=== PATIENT | female | born 1950 | race Caucasian/White ===

== ENCOUNTER → 2016-08-27 | Outpatient (CLI) | payer BC ==
[~2016-08-27] MED LIST: CLARITIN 1010 MG/TAB PO
== END ==
LOC: MC.RAD 14:40
DX: Z12.31 Encounter for screening mammogram for malignant neoplasm of breast (principal)

== ENCOUNTER → 2018-01-28 | Outpatient (CLI) | payer MEDICARE, OTHER | LOC: MC.RAD 12-18 08:40 | DX: Z12.31 Encounter for screening mammogram for malignant neoplasm of breast (principal) ==

== ENCOUNTER 2019-09-02 09:57 | Day surgery (SDC) | payer MEDICARE, OTHER ==
[~2019-09-02] VITALS: Ht 171.4 cm; Wt 63.6 kg
[2019-09-02] VITALS (11 sets, daily range): BP systolic 97–124; BP diastolic 49–85; PULSE 56–81; TEMP 97.3–98
[~2019-09-02 09:57] MED LIST changes: +MELATONIN5 M1 SL; +NORCO 325 MG-51 TAB PO; +TYLENOL 8 HR PO
--- NOTE | 2019-09-02 10:54 | NUR ---
Patient returns to room per cart from PACU by Rafal CLARK and oxyen saturation 99-100 on room air. States that she was feeling slightly woozy. Allowed to rest. Spouse in room. Will continue to monitor.
--- NOTE | 2019-09-02 17:05 | NUR ---
Patient arrived to floor from PACU via bed. Patient is drowsy but awake, oriented, and answers questions appropriately. Jordan drain has scant amount of drainage. Dressing to right mastectomy site is CDI, no indication of swelling or hematoma. Post op checks initiated. Patient denies needs at this time, call light within reach.
--- NOTE | 2019-09-02 18:27 | NUR ---
Patient resting in bed eating dinner at this time. Patient states that she is beginning to feel a bit nauseous, administered PRN zofran per order. Post op checks continue, VS WNL. Dressing to right matectomy site continues to be CDI with no indications of swelling or hematoma. Patient states pain is well controlled at this time, and denies further needs, call light within reach.
--- NOTE | 2019-09-02 20:00 | NUR ---
Report received. Assumed care for security shift supervisor. A&Ox3. Assessment complete. VS stable. Dressing to left chest-gauze/medipore tape is C/D/I. REYMUNDO drain with serosanguineous fluid. Right chest port bandaids C/D/I. Denies nausea/pain/shortness of breath. Plan of care discussed for this shift-denies questions/concerns. Call light in reach. Will monitor.
[2019-09-03 04:00] VITALS: BP 111/67; PULSE 71; TEMP 98.1
--- NOTE | 2019-09-03 06:43 | NUR ---
Rested well this shift. Pain controlled with tylenol. Voiding. Tolerating PO. Dressing have remained C/D/I. REYMUNDO drain with 75mls of output this shift.
[2019-09-03 08:00] VITALS: BP 124/74; PULSE 97; TEMP 98.2
--- NOTE | 2019-09-03 08:34 | NUR ---
Dr Taylor here to see patient.
--- NOTE | 2019-09-03 08:45 | NUR ---
Patient alert and oriented, answers questions appropriately. See assessment. Right breast incision with dressing CDI, no drainage noted. REYMUNDO to right breast compressed, dressing CDI. No c/o at this time.
--- NOTE | 2019-09-03 10:25 | NUR ---
Dressing to right breast changed, incision with edges well approximated, no redness or drainage noted. REYMUNDO dressing changed, drain to compression. REYMUNDO drain care education provided, return demonstration. Discharge instructions reviewed with patient and spouse, verbalized understanding. Discharged via wheelchair to auto/home with family at 1020.
== END 2019-09-03 10:20 | disposition home or self-care (01) ==
LOC: SDCO 09:57 → SURG 15:05 → SDCO 09-03 10:20
DX: C50.511 Malignant neoplasm of lower-outer quadrant of right female breast (principal); Z17.1 Estrogen receptor negative status [ER-]; C77.3 Secondary and unspecified malignant neoplasm of axilla and upper limb lymph nodes; K21.9 Gastro-esophageal reflux disease without esophagitis; M19.041 Primary osteoarthritis, right hand; M19.042 Primary osteoarthritis, left hand; Z80.0 Family history of malignant neoplasm of digestive organs; Z80.1 Family history of malignant neoplasm of trachea, bronchus and lung; Z82.3 Family history of stroke; Z88.5 Allergy status to narcotic agent
CPT/HCPCS: OP; C1788; J0690; J1100; J1170; J1644; J2250; J2405; J2704; J2795; J3010; J7120

== ENCOUNTER → 2019-09-17 | Outpatient (CLI) | payer MEDICARE, OTHER | LOC: COL.VAS 09:57 | DX: Z51.11 Encounter for antineoplastic chemotherapy (principal); C50.511 Malignant neoplasm of lower-outer quadrant of right female breast; I51.7 Cardiomegaly; I34.0 Nonrheumatic mitral (valve) insufficiency ==

== ENCOUNTER → 2019-11-27 | Outpatient (CLI) | payer MEDICARE, OTHER | LOC: COL.VAS 12:07 | DX: Z01.818 Encounter for other preprocedural examination (principal); I08.1 Rheumatic disorders of both mitral and tricuspid valves; C50.511 Malignant neoplasm of lower-outer quadrant of right female breast ==

== ENCOUNTER 2020-02-03 13:33 | Outpatient (RCR) | payer MEDICARE, OTHER ==
[2020-04-06] MEDS ORDERED: ZYRTEC 10MG10 MG PO (09:48)
== END 2020-05-03 | disposition home or self-care (01) ==
LOC: MKS.ESL.PT
DX: C50.211 Malignant neoplasm of upper-inner quadrant of right female breast (principal); I89.0 Lymphedema, not elsewhere classified; Z90.11 Acquired absence of right breast and nipple

== ENCOUNTER → 2020-02-19 | Outpatient (CLI) | payer MEDICARE, OTHER | LOC: COL.VAS 11:56 | DX: Z51.11 Encounter for antineoplastic chemotherapy (principal); I08.1 Rheumatic disorders of both mitral and tricuspid valves; C50.511 Malignant neoplasm of lower-outer quadrant of right female breast ==

== ENCOUNTER → 2020-04-11 | Outpatient (CLI) | payer MEDICARE, OTHER ==
[~2020-04-11] VITALS: Ht 171.4 cm; Wt 60.6 kg
[~2020-04-11] MED LIST changes: +ZYRTEC 10MG10 MG PO
[2020-04-11 12:17] VITALS: BP 124/62; PULSE 85
[2020-04-11 13:30] VITALS: BP 140/73; PULSE 74
== END ==
LOC: COL.RAD 12:00
DX: E04.1 Nontoxic single thyroid nodule (principal)

== ENCOUNTER → 2020-05-03 | Outpatient (CLI) | payer MEDICARE, OTHER | LOC: COL.VAS 12:54 | DX: C50.511 Malignant neoplasm of lower-outer quadrant of right female breast (principal) ==

== ENCOUNTER → 2020-08-05 | Outpatient (CLI) | payer MEDICARE, OTHER | LOC: COL.VAS 14:11 | DX: C50.511 Malignant neoplasm of lower-outer quadrant of right female breast (principal); Z92.21 Personal history of antineoplastic chemotherapy ==

== ENCOUNTER → 2020-09-02 | Outpatient (CLI) | payer MEDICARE, OTHER | LOC: COL.VAS 12:46 | DX: Z51.11 Encounter for antineoplastic chemotherapy (principal); C50.511 Malignant neoplasm of lower-outer quadrant of right female breast; I51.7 Cardiomegaly ==